=== PATIENT | male | born 1995 | race Caucasian/White ===

== ENCOUNTER 2021-04-06 07:58 | Emergency (ER) | payer OTHER ==
[2021-04-06 08:08] VITALS: RESP 18; TEMP 97.8
[2021-04-06] MEDS ORDERED: LIDOCAINE 5% PATCH TOPICAL STA (08:25)
[2021-04-06] MEDS ORDERED: DEXAMETHASONE SOD PHOSPHATE 10 MG/ML 1 ML VIAL IM STA (08:25)
[2021-04-06] MEDS ORDERED: MORPHINE SULFATE 4 MG/ML SYRINGE IV STA (08:25)
--- NOTE | 2021-04-06 08:30 | ED ---
General Adult HPI - General Chief complaint: Back Pain/Injury Stated complaint: lt sided back pain Time Seen by Provider: 04/06/21 08:07 Source: patient Mode of arrival: ambulatory Limitations: no limitations - History of Present Illness Initial comments: Dictation was produced using [employer] dictation software. please excuse any grammatical, word or spelling errors. This patient was cared for during a federal and state declared state of emergency secondary to Covid 19 Chief Complaint: 26-year-old male presents today with left thoracic back pain History of Present Illness: 26-year-old male presents today with severe left thoracic back pain. Patient states that 2 weeks ago he reached for something and felt like he pulled a muscle on his left thoracic back. Patient states his symptoms aren't improved. This morning he coughed and his pain recurred. He states it is sharp nonradiating. Is located over the left soft tissue muscles. It's worse with palpation and especially with truncal rotation towards the left. Patient states that this pain is severe. Pain is nonpleuritic. As a shortness of breath. The ROS documented in this emergency department record has been reviewed and confirmed by me. Those systems with pertinent positive or negative responses have been documented in the HPI. All other systems are other negative and/or noncontributory. PHYSICAL EXAM: General Impression: Alert and oriented x3, not in acute distress HEENT: Normocephalic atraumatic, extra-ocular movements intact, pupils equal and reactive to light bilaterally, mucous membranes moist. Cardiovascular: Heart regular rate and rhythm Chest: Able to complete full sentences, no retractions, no tachypnea Abdomen: abdomen soft, non-tender, non-distended, no organomegaly Musculoskeletal: Pulses present and equal in all extremities, no peripheral edema Back: Reproducible tenderness to palpation over the left soft tissue of the thoracic back at approximately the level of T10 Motor: no focal deficits noted Neurological: CN II-XII grossly intact, no focal motor or sensory deficits noted Skin: Intact with no visualized rashes Psych: Normal affect and mood ED course: 26-year-old male presents with thoracic back strain. vital signs upon arrival are within acceptable limits. Patient is not hypoxic or dyspneic. Patient reevaluated after Lidoderm patch, Motrin, Decadron and morphine. Symptoms are improved. Patient will be discharged with prescription for analgesia. - Related Data Home Medications Medication Instructions Recorded Confirmed Albuterol Sulfate [Proair Hfa] 1 - 2 puff INHALATION RT-Q6H PRN 04/06/21 04/06/21 Previous Rx's Medication Instructions Recorded HYDROcodone/APAP 5-325MG [[place] 1 tab PO Q6HR PRN 3 Days #10 tab 04/06/21 5-325] Lidocaine 5% Patch [Lidoderm] 1 patch TOPICAL DAILY PRN #5 patch 04/06/21 Allergies Allergy/AdvReac Type Severity Reaction Status Date / Time No Known Allergies Allergy Verified 04/06/21 10:06 Review of Systems ROS Statement: Those systems with pertinent positive or pertinent negative responses have been documented in the HPI. ROS Other: All systems not noted in ROS Statement are negative. Past Medical History Past Medical History: Asthma Additional Past Medical History / Comment(s): autism. heart murmur History of Any Multi-Drug Resistant Organisms: None Reported Past Surgical History: No Surgical Hx Reported Past Psychological History: Bipolar, Depression Smoking Status: Vaper Past Alcohol Use History: Occasional Past Drug Use History: Marijuana General Exam Limitations: no limitations Course Vital Signs 04/06/21 08:04 Temperature 97.8 F Pulse Rate 73 Respiratory 18 Rate Blood Pressure 122/87 O2 Sat by Pulse 99 Oximetry Disposition Clinical Impression: Back strain Disposition: HOME SELF-CARE Condition: Good Instructions (If sedation given, give patient instructions): Thoracic Back Strain (ED) Prescriptions: Lidocaine 5% Patch [Lidoderm] 1 patch TOPICAL DAILY PRN #5 patch PRN Reason: Pain HYDROcodone/APAP 5-325MG [[place] 5-325] 1 tab PO Q6HR PRN 3 Days #10 tab PRN Reason: Pain Is patient prescribed a controlled substance at d/c from ED?: Yes If prescribed controlled substance>3 days was MAPS reviewed?: Prescribed <3 Days Referrals: None,Stated [Primary Care Provider] - 1-2 days Time of Disposition: 10:31
[2021-04-06] MEDS ORDERED: IBUPROFEN 800 MG TAB PO STA (08:55)
[2021-04-06 10:50] VITALS: BP 121/82; PULSE 67
== END 2021-04-06 10:49 | disposition home or self-care (01) ==
LOC: EC 07:58
DX: S29.012A Strain of muscle and tendon of back wall of thorax, initial encounter (principal); F84.0 Autistic disorder; J45.909 Unspecified asthma, uncomplicated; F41.9 Anxiety disorder, unspecified; F32.9 Major depressive disorder, single episode, unspecified; F17.290 Nicotine dependence, other tobacco product, uncomplicated; F12.90 Cannabis use, unspecified, uncomplicated; Z79.51 Long term (current) use of inhaled steroids; X58.XXXA Exposure to other specified factors, initial encounter
CPT/HCPCS: 99283; 96374; 96372; J2270; J1100

== ENCOUNTER 2022-03-20 18:52 | Emergency (ER) | payer OTHER ==
[2022-03-20 19:00] VITALS: BP 116/73; TEMP 97.9
--- NOTE | 2022-03-20 19:34 | XR ---
EXAMINATION TYPE: XR chest 2V DATE OF EXAM: 03/20/2022 7:16 PM COMPARISON: Multiple radiographs, with the most recent on 04/24/2010. TECHNIQUE: XR chest 2V frontal and lateral view of the chest. CLINICAL INDICATION:Male, 27 years old with history of cough; FINDINGS: Lungs/Pleura: There is no evidence of pleural effusion, focal consolidation, or pneumothorax. Pulmonary vascularity: Unremarkable. Heart/mediastinum: Cardiomediastinal silhouette is unremarkable. Musculoskeletal: No acute osseous pathology. IMPRESSION: No acute cardiopulmonary disease/process.
[2022-03-20 20:45] VITALS: RESP 22
[2022-03-20] MEDS ORDERED: predniSONE 50 MG TAB PO STA (20:52)
[2022-03-20] MEDS ORDERED: IPRATROPIUM-ALBUTEROL 3 ML NEB INHALATION STA (20:52)
--- NOTE | 2022-03-20 20:57 | ED ---
General Adult HPI - General Chief complaint: Shortness of Breath Stated complaint: COLE Time Seen by Provider: 03/20/22 20:45 Source: patient, RN notes reviewed, old records reviewed Mode of arrival: wheelchair Limitations: no limitations - History of Present Illness Initial comments: This is a well-appearing 27-year-old male that presents with a cough and wheezing for 2 days. He states he was seen at urgent care and given a shot of steroids 2 days ago. Patient states that he vapes "a lot" and does have a history of asthma and anxiety. Mom is at bedside and states that he has been trying to quit using nicotine but gets very agitated. Patient denies any fevers, no nausea, vomiting or diarrhea. No chest pain. He states he just has the cough and feels short of breath at times. He uses albuterol but does not take any daily treatments. He is unable to find a primary care doctor he states -: days(s) (2) Improves with: none Worsens with: none Associated Symptoms: cough Treatments Prior to Arrival: other (Steroid injection at urgent care 2 days ago) - Related Data Home Medications Medication Instructions Recorded Confirmed Albuterol Sulfate [Proair Hfa] 1 - 2 puff INHALATION RT-Q6H PRN 04/06/21 04/06/21 Previous Rx's Medication Instructions Recorded HYDROcodone/APAP 5-325MG [[place] 1 tab PO Q6HR PRN 3 Days #10 tab 04/06/21 5-325] Lidocaine 5% Patch [Lidoderm] 1 patch TOPICAL DAILY PRN #5 patch 04/06/21 Albuterol Inhaler [Ventolin Hfa 2 puff INHALATION RT-QID #8 gm 03/20/22 Inhaler] predniSONE 50 mg PO DAILY #5 tab 03/20/22 Allergies Allergy/AdvReac Type Severity Reaction Status Date / Time No Known Allergies Allergy Verified 04/06/21 10:06 Review of Systems ROS Statement: Those systems with pertinent positive or pertinent negative responses have been documented in the HPI. ROS Other: All systems not noted in ROS Statement are negative. Past Medical History Past Medical History: Asthma Additional Past Medical History / Comment(s): autism. heart murmur History of Any Multi-Drug Resistant Organisms: None Reported Past Surgical History: No Surgical Hx Reported Past Psychological History: Bipolar, Depression Smoking Status: Vaper Past Alcohol Use History: Occasional Past Drug Use History: Marijuana General Exam Limitations: no limitations General appearance: alert, in no apparent distress Head exam: Present: atraumatic Eye exam: Present: normal appearance ENT exam: Present: normal oropharynx, mucous membranes moist Neck exam: Present: full ROM. Absent: tenderness, meningismus, lymphadenopathy Respiratory exam: Present: wheezes. Absent: respiratory distress, rales, rhonchi, stridor, chest wall tenderness, accessory muscle use, decreased breath sounds Cardiovascular Exam: Present: regular rate, normal heart sounds GI/Abdominal exam: Present: soft. Absent: distended, tenderness, rigid Extremities exam: Present: normal capillary refill Back exam: Absent: CVA tenderness (R), CVA tenderness (L) Neurological exam: Present: alert, oriented X3, normal gait Psychiatric exam: Present: normal affect, normal mood Skin exam: Present: warm, dry, normal color. Absent: cyanosis, diaphoretic, petechiae, pallor Course Vital Signs 03/20/22 03/20/22 03/20/22 18:57 20:43 21:02 Temperature 97.9 F Pulse Rate 65 66 Respiratory 18 22 Rate Blood Pressure 116/73 O2 Sat by Pulse 99 Oximetry 03/20/22 21:09 Temperature Pulse Rate 69 Respiratory Rate Blood Pressure O2 Sat by Pulse Oximetry Medical Decision Making - Medical Decision Making Chest XR shows no acute cardiopulmonary disease. Influenza and coronavirus swabs are negative. Patient is afebrile with an oxygen saturation of 99% on room air. Patient did have wheezes bilaterally was given a breathing treatment and prednisone. Pulse ox is 99% on room air. Vital signs are stable. He was directed to stop vaping. He was encouraged to try the Nicorette gum. I did discuss with the patient that if he uses his albuterol inhaler frequently he should be placed on maintenance therapy by his primary care doctor. He'll be placed on prednisone for the next 5 days and directed to follow up with primary care doctor. Patient and his mother are agreeable to this plan of care. Case discussed with Dr. Kay - Lab Data Lab Results 03/20/22 Range/Units 19:01 Influenza Type A (PCR) Not Detected (Not Detectd) Influenza Type B (PCR) Not Detected (Not Detectd) RSV (PCR) Not Detected (Not Detectd) SARS-CoV-2 (PCR) Not Detected (Not Detectd) Disposition Clinical Impression: Asthma exacerbation Disposition: HOME SELF-CARE Condition: Good Instructions (If sedation given, give patient instructions): Asthma (ED) Additional Instructions: You need to quit smoking. You can buy NicoDerm gum [id number] to assist you. Use your albuterol inhaler every 4 hours as needed and take the prednisone as prescribed. It is important you follow-up with the primary care doctor for asthma care management because you may need daily maintenance therapy. Return to the emergency room with any new or concerning symptoms including fevers, worsening shortness of breath or chest pain. Prescriptions: predniSONE 50 mg PO DAILY #5 tab Albuterol Inhaler [Ventolin Hfa Inhaler] 2 puff INHALATION RT-QID #8 gm Is patient prescribed a controlled substance at d/c from ED?: No Referrals: None,Stated [Primary Care Provider] - 1-2 days Keo Berger MD [REFERRING] - 1-2 days Dora Germain MD [STAFF PHYSICIAN] - 1-2 days Time of Disposition: 21:39
[2022-03-20 21:10] VITALS: PULSE 69
== END 2022-03-20 21:55 | disposition home or self-care (01) ==
LOC: EC 18:52
DX: J45.901 Unspecified asthma with (acute) exacerbation (principal); F17.209 Nicotine dependence, unspecified, with unspecified nicotine-induced disorders; Z20.822 Contact with and (suspected) exposure to COVID-19
CPT/HCPCS: 94640; 87636; 71046; 99285; J7512